=== PATIENT | male | born 1985 | race Caucasian/White ===

== ENCOUNTER 2022-04-08 11:34 | Emergency (ER) | payer MEDICAID ==
--- NOTE | 2022-04-08 12:46 | ED Physician Documentation ---
History of Present Illness - Stated complaint Stated Complaint: DIZZINESS,LIGHTHEADED,ANXIETY - Chief complaint Chief Complaint: General - History obtained from History obtained from: Patient - Additonal information Additional information: This is an otherwise very healthy 36-year-old gentleman with no past medical history, no meds, no substance use, and no history of surgeries who presents with a 3-day history of odd symptoms after he eats. Started on Wednesday, about an hour after he eats, does not matter what, even drinking water will do it, he develops mild left lower quadrant pain associated with weakness, brain fog, lightheadedness. There is no associated nausea or changes in his bowel movements. No fevers. He has not been out of his usual routine. Review of Systems Ten Systems: 10 systems reviewed and negative Constitutional: reports: Fatigue. denies: Fever, Chills Nose: denies: Rhinorrhea / runny nose Throat: denies: Sore throat Cardiac: denies: Chest pain / pressure, Palpitations Respiratory: denies: Cough PD PAST MEDICAL HISTORY - Present Medications Home Medications: Ambulatory Orders Medication Instructions Recorded Confirmed No Known Home Medications 04/08/22 04/08/22 - Allergies Allergies/Adverse Reactions: Allergies Allergy/AdvReac Type Severity Reaction Status Date / Time No Known Drug Allergies Allergy Verified 04/08/22 11:47 PD ED PE NORMAL - Vitals Vital signs reviewed: Yes - General General: Alert and oriented X 3, No acute distress - HEENT HEENT: PERRL, EOMI - Neck Neck: Supple, no meningeal sign, No bony TTP - Cardiac Cardiac: RRR, No murmur - Respiratory Respiratory: No respiratory distress, Clear bilaterally - Abdomen Abdomen: Normal bowel sounds, Soft, Non tender - Back Back: No CVA TTP, No spinal TTP - Derm Derm: Normal color, Warm and dry - Extremities Extremities: No edema, No calf tenderness / cord - Neuro Neuro: Alert and oriented X 3, Normal speech Results - Vitals Vitals: Vital Signs - 24 hr 04/08/22 04/08/22 11:45 14:18 Temperature 36.3 C L 36.6 C Heart Rate 96 74 Respiratory 16 14 Rate Blood Pressure 139/86 H 135/79 H O2 Saturation 98 97 Oxygen O2 Source Room air - EKG (time done) 1534 Rate: Rate (enter#) (79) Rhythm: NSR [place]: Normal Intervals: Normal [place] QRS: Normal Ischemia: Normal ST segments - Labs Labs: Laboratory Tests 04/08/22 04/08/22 04/08/22 12:55 12:55 12:55 WBC 8.7 RBC 5.30 Hgb 15.2 Hct 45.1 MCV 85.1 MCH 28.7 MCHC 33.7 RDW 11.9 L Plt Count 290 MPV 9.5 Neut # (Auto) 6.0 Lymph # (Auto) 1.8 [place] # (Auto) 0.9 Eos # (Auto) 0.0 Baso # (Auto) 0.0 Absolute Nucleated RBC 0.00 Nucleated RBC % 0.0 Sodium 133 L Potassium 3.7 Chloride 100 L Carbon Dioxide 25 Anion Gap 8.0 BUN 19 Creatinine 0.9 Estimated GFR (MDRD) 97 Glucose 107 H Estimat Average Glucose Hemoglobin A1c % Calcium 9.6 Magnesium 2.1 Total Bilirubin 0.9 AST 25 ALT 32 Alkaline Phosphatase 67 Total Protein 8.7 H Albumin 4.8 Globulin 3.9 Albumin/Globulin Ratio 1.2 TSH 1.26 04/08/22 12:55 WBC RBC Hgb Hct MCV MCH MCHC RDW Plt Count MPV Neut # (Auto) Lymph # (Auto) [place] # (Auto) Eos # (Auto) Baso # (Auto) Absolute Nucleated RBC Nucleated RBC % Sodium Potassium Chloride Carbon Dioxide Anion Gap BUN Creatinine Estimated GFR (MDRD) Glucose Estimat Average Glucose 120 H Hemoglobin A1c % 5.8 Calcium Magnesium Total Bilirubin AST ALT Alkaline Phosphatase Total Protein Albumin Globulin Albumin/Globulin Ratio TSH - Rads (name of study) CT A/p Radiology: Final report received, EMP read indepedently PD Medical Decision Making - ED course ED course: 36-year-old gentleman with odd symptoms an hour after he eats, could be a vagal reaction related to say ulcer pain or diverticulitis although he has a very benign abdominal examination. He is specifically worried about his blood sugar, it was 129 in triage on fingerstick while he was drinking orange juice. 36-year-old gentleman presents with lower abdominal pain starting about an hour after he eats and then lasting about 3 hours. This is an acute issue having only gone on for a few days. He has benign examination. He had a particular concerned about his blood sugar, that was unremarkable. This was followed by hemoglobin A1c of 5.8 which is borderline elevated and watchful waiting and follow-up for routine measurements of blood glucose were advised. Given the abdominal pain and atypical symptoms a CT was done and was notable for diverticula and findings consistent with mesenteric adenitis. This may be causative and discussed the benign nature of that illness as well as its self- limited nature. Prior to discharge he had a specific concern about heart issues, his symptoms would be very atypical for heart as they seemed more GI but he does have an extensive family history of heart disease so an EKG will be done. Departure - Departure Disposition: 01 Home, Self Care Clinical Impression: Mesenteric adenitis Condition: Good Record reviewed to determine appropriate education?: Yes Instructions: ED Adenitis Mesenteric Comments: Today we found on the CAT scan findings consistent with mesenteric adenitis. This is generally a post viral illness which resolves spontaneously but can give gastrointestinal complaints. Should be gone within the week. Your hemoglobin A 1c was 5.8 which is borderline elevated suggesting a chronic average blood sugar of about 120. This does not mean you are diabetic but does need repeat labs at least yearly with your primary care physician. Call your doctor to arrange a follow-up appointment, make the next available appointment. In the interim, return anytime if worse or if new symptoms develop.
[2022-04-08 13:01] LABS: BASOPHILS % (AUTO) 0.2 %; EOSINOPHILS % (AUTO) 0.5 %; HCT - HEMATOCRIT 45.1 % (42.0-52.0); HGB - HEMOGLOBIN 15.2 g/dL (14.0-18.0); LYMPHOCYTES # (AUTO) 1.8 10^3/uL (1.5-3.5); LYMPHOCYTES % (AUTO) 20.2 %; MEAN CORPUSCULAR HEMOGLOBIN 28.7 pg (27.0-31.0); MEAN CORPUSCULAR HGB CONC 33.7 g/dL (32.0-36.0); MEAN CORPUSCULAR VOLUME 85.1 fL (80.0-94.0); MEAN PLATELET VOLUME 9.5 fL (7.4-11.4); MONOCYTES # (AUTO) 0.9 10^3/uL (0.0-1.0); NEUTROPHILS % (AUTO) 68.8 %; PLT - PLATELET COUNT 290 10^3/uL (130-450); RED CELL DISTRIBUTION WIDTH 11.9 % (12.0-15.0); WHITE BLOOD COUNT 8.7 x10^3/uL (4.8-10.8)
[2022-04-08 13:16] LABS: ALBUMIN 4.8 g/dL (3.2-5.5); ALBUMIN/GLOBULIN RATIO 1.2 (1.0-2.2); BILIRUBIN,TOTAL 0.9 mg/dL (0.2-1.0); CALCIUM 9.6 mg/dL (8.5-10.3); CREATININE 0.9 mg/dL (0.6-1.2); MAGNESIUM 2.1 mg/dL (1.7-2.8); POTASSIUM 3.7 mmol/L (3.5-5.0); TOTAL PROTEIN 8.7 g/dL (6.7-8.2)
[2022-04-08 13:31] LABS: ESTIMATED AVERAGE GLUCOSE 120 mg/dL (70-100); HEMOGLOBIN A1c% 5.8 % (4.27-6.07)
[2022-04-08] MEDS ORDERED: iohexoL-300 100 ML VIAL ONE ×2 (13:31→13:42)
--- NOTE | 2022-04-08 14:57 | CT Report ---
PROCEDURE: ABDOMEN/PELVIS W INDICATIONS: IV only, LLQ pain CONTRAST: 100ml Omnipaque 300 TECHNIQUE: After the administration of contrast, 5 mm thick sections acquired from the diaphragms to the sym physis. 5 mm thick coronal and sagittal reformats were acquired. For radiation dose reduction, the following was used: automated exposure control, adjustment of mA and/or kV according to patient size . COMPARISON: None. FINDINGS: Image quality: Good Lower chest: Unremarkable. Patulous distal esophagus, nonspecific. Solid organs: Liver is unremarkable. Gallbladder is unremarkable. No pathologic dilation of the bilia ry tree or pancreatic duct. No splenomegaly. No adrenal nodules. No hydronephrosis. Vessels and lymph nodes: Main portal vein is patent. No pathologic adenopathy by size criteria or abd ominal aortic aneurysm. Bowel and peritoneum: No bowel obstruction. No pathologic ascites. There are colonic diverticula. The appendix appears normal. Adjacent to the cecum, there are prominent mesenteric lymph nodes, for exam ple 11/05. Body wall: Unremarkable Pelvis: Unremarkable Bones: Sclerotic small lesions may be bone islands. No acute or suspicious abnormality identified. IMPRESSION: No acute abdominopelvic pathology by CT. There are few colonic diverticula without convincing signs o f inflammation. The appendix appears normal. No intra-abdominal abscess. Prominent right lower quadra nt mesenteric lymph nodes may be seen with mesenteric adenitis. Other findings as above. Reviewed by: Danny Calhoun MD on 04/08/2022 2:55 PM PST Approved by: Danny Calhoun MD on 04/08/2022 2:55 PM PST Station ID: [id number]
[2022-04-08] MEDS ORDERED: iohexoL-300 100 ML VIAL IVP ONE (14:58)
[2022-04-08 15:48] VITALS: BP 125/78
== END 2022-04-08 15:47 | disposition home or self-care (01) ==
LOC: ED 11:34
DX: I88.0 Nonspecific mesenteric lymphadenitis (principal); K57.30 Diverticulosis of large intestine without perforation or abscess without bleeding
CPT/HCPCS: 36415; 74177; 80053; 83036; 83735; 84443; 85025; 93005; 99284; Q9967

== ENCOUNTER 2023-08-10 14:59 | Emergency (ER) | payer MEDICAID, OTHER ==
[2023-08-10] MEDS: PROPARACAINE 0.5% OPHTH DROPS 15 ML RIGHTEYE STA (17:11)
--- NOTE | 2023-08-10 17:17 | ED Physician Documentation ---
History of Present Illness - Stated complaint Stated Complaint: FB RT EYE - Chief complaint Chief Complaint: Ext Problem - History obtained from History obtained from: Patient - Additonal information Additional information: 37-year-old gentleman with no eye problems got a foreign body in his right eye at work just prior to arrival. No visual deficit. He is not sure if it is wood or fiberglass. PD PAST MEDICAL HISTORY - Past Medical History Past Medical History: No Cardiovascular: None Respiratory: None Neuro: None Endocrine/Autoimmune: None GI: None : None HEENT: None Psych: None Musculoskeletal: None Derm: None - Past Surgical History Past Surgical History: No Neuro: Other - Present Medications Home Medications: Ambulatory Orders Medication Instructions Recorded Confirmed No Known Home Medications 04/08/22 08/10/23 - Allergies Allergies/Adverse Reactions: Allergies Allergy/AdvReac Type Severity Reaction Status Date / Time No Known Drug Allergies Allergy Verified 08/10/23 15:16 - Social History Does the pt smoke?: No Smoking Status: Never smoker Does the pt drink ETOH?: Yes Does the pt have substance abuse?: No - Immunizations Immunizations are current?: Yes - POLST Patient has POLST: No PD ED PE NORMAL - Vitals Vital signs reviewed: Yes - General General: Alert and oriented X 3, Other (He appears uncomfortable was pain-free after proparacaine.) - HEENT HEENT: PERRL, EOMI, Other (There is a small likely wood foreign body on the right lateral cornea which was removed with a Q-tip after anesthetic. Subsequently fluorescein testing was negative.) - Neck Neck: Supple, no meningeal sign, No bony TTP - Neuro Neuro: Alert and oriented X 3 Results - Vitals Vitals: Vital Signs - 24 hr 08/10/23 15:16 Temperature 36.8 C Heart Rate 88 Respiratory 16 Rate Blood Pressure 129/88 H O2 Saturation 98 Oxygen O2 Source Room air Procedures - FB removal FB location: Other (right cornea) FB removal preparation: Local anesthesia-specify (proparacaine) Removal method: Other (q-tip) FB removal aftercare: Removed successfully PD Medical Decision Making - ED course Complexity details: other (L&I paperwork [id number] completed and submitted) ED course: Corneal foreign body was removed. Then the proparacaine was washed out and he was observed for a bit and had no significant residual symptoms. Departure - Departure Disposition: 01 Home, Self Care Clinical Impression: Corneal foreign body Qualifiers: Encounter type: initial encounter Laterality: right Qualified Code(s): T15.01XA - Foreign body in cornea, right eye, initial encounter Condition: Good Record reviewed to determine appropriate education?: Yes Instructions: ED Foreign Body Cornea Follow-Up: Doug Delgado MD [Provider Admit Priv/Credential] - Comments: You were seen today for small wood foreign body on the right cornea. It appears this has resolved. Return if worse. If having persistent milder symptoms you can follow-up with the assistant project engineer, the number is on this form. Forms: PCP List
[2023-08-10 17:57] VITALS: BP 138/101; O2SAT 100
== END 2023-08-10 17:50 | disposition home or self-care (01) ==
LOC: ED 14:59
DX: T15.01XA Foreign body in cornea, right eye, initial encounter (principal); W44.8XXA Other foreign body entering into or through a natural orifice, initial encounter; Y99.0 Civilian activity done for income or pay
CPT/HCPCS: 65220; 99283; J3490

== ENCOUNTER 2024-01-03 08:00 | Outpatient (CLI) | payer BC, MEDICAID ==
--- NOTE | 2024-01-03 20:01 | XRAY Report ---
PROCEDURE: Chest 2V INDICATIONS: FATIGUE, ACUTE COUGH TECHNIQUE: 2 views of the chest were acquired. COMPARISON: None. FINDINGS: Surgical changes and devices: None. Lungs and pleura: No pleural effusions or pneumothorax. Lungs are clear. Mediastinum: Mediastinal contours appear normal. Heart size is normal. Bones and chest wall: No suspicious bony lesions. Overlying soft tissues appear unremarkable. IMPRESSION: No acute cardiopulmonary process. Reviewed by: Guanakito Pino MD on 01/03/2024 8:00 PM PDT Approved by: Guanakito Pino MD on 01/03/2024 8:00 PM PDT Station ID: [id number]
== END 2024-01-03 23:59 | disposition home or self-care (01) ==
LOC: DI.S 08:00
PROVIDERS: ATTEND Registered Nurse
DX: R05.1 Acute cough (principal); R53.83 Other fatigue; R06.2 Wheezing